=== PATIENT | female | born 1995 | race Caucasian/White ===

== ENCOUNTER → 2023-09-26 | Outpatient (CLI) | payer BC, SELFPAY ==
[2023-09-26 16:32] LABS: Absolute Lymphocyte Count 3.01 X10^3/uL (0.83-4.51); Basophil# 0.08 X10^3/uL; Basophil% 0.8 % (0-1); Eosinophil# 0.23 X10^3/uL; Eosinophils% 2.3 % (0-5); Hematocrit 38.2 % (37-47); Hemoglobin 12.9 g/dL (12.0-15.0); Lymphocyte # 3.01 X10^3/ul (0.83-4.51); Lymphocyte % 30.4 % (19-41); Mean Corp Hgb Conc 33.8 g/dL (32-36); Mean Corpuscular Hgb 30.1 pg (27.0-32.0); Mean Platelet Vol. 11.4 fl (6.2-12.0); Monocyte% 6.1 % (0-10); NRBC Flagged by Analyzer 0 % (0-5); Neutrophil # 5.96 X10^3/uL (2.7-7.7); Neutrophil % 60.2 % (47-70); Platelet Count 267 K/mm3 (150-450); RBC Distribution Width SD 39.5 fl (35.1-43.9); Red Blood Count 4.29 M/mm3 (4.2-5.4); White Blood Count 9.9 K/mm3 (4.4-11.0)
[2023-09-26 16:50] LABS: ALB/GLOB Ratio 0.9 RATIO (0.9-2.4); AST(SGOT) 15 U/L (15-37); Alanine Aminotransfer ALT/SGPT 19 U/L (13-56); Albumin, Serum 3.6 g/dL (3.2-5.0); Alkaline Phosphatase 35 U/L (45-117); Anion Gap 8 (5-15); BUN 16 mg/dL (7-18); BUN/Creat Ratio 17.3 RATIO (10-20); Calcium,Total 9.7 mg/dL (8.5-10.1); Chloride 107 mmol/L (98-107); Creatinine, Serum 0.92 mg/dL (0.55-1.02); D-Dimer Quantitative (DVT/PE) 0.46 FEU/ug/m (0.27-0.49); EST Glomerular Filtration Rate 77 mL/min (>60); Est Glom Filt Rate - Afr Amer 93 mL/min (>60); Globulin 3.9 g/dL (2.2-4.2); Glucose 90 mg/dL (74-106); Potassium 4.1 mmol/L (3.5-5.1); Protein, Total 7.5 g/dL (6.4-8.2); Sodium Level 139 mmol/L (136-145)
[2023-09-26 16:51] LABS: Vitamin D,25 Hydroxy 45.5 ng/mL
== END | disposition home or self-care (01) ==
LOC: BIMLAB 14:38
PROVIDERS: PCP Internal Medicine; Referring Provider Internal Medicine; Visit Provider Internal Medicine
DX: R07.89 Other chest pain (principal)
CPT/HCPCS: 36415; 80053; 82306; 85025; 85379

== ENCOUNTER → 2024-01-01 | Outpatient (CLI) | payer BC, SELFPAY ==
[2024-01-03 06:09] LABS: Anti-Centromere B Ab <0.2 AI (0.0-0.9); Anti-Chromatin <0.2 AI (0.0-0.9); Anti-Jo <0.2 AI (0.0-0.9); Anti-Nuclear Antibody Test Negative (.); Anti-Scleroderma-70 AB <0.2 AI (0.0-0.9); Anti-dsDNA Ab <1 IU/mL (0-9); RNP Ab <0.2 AI (0.0-0.9); SJOGREN'S Anti-SS-A test < 0.2 AI (0.0-0.9); SJOGREN'S Anti-SS-B test < 0.2 AI (0.0-0.9); Smith Ab <0.2 AI (0.0-0.9)
== END | disposition home or self-care (01) ==
LOC: BIMLAB 08:57
PROVIDERS: PCP Internal Medicine; Referring Provider Internal Medicine; Visit Provider Internal Medicine
DX: R07.89 Other chest pain (principal)
CPT/HCPCS: 36415; 86038; 86225; 86235

== ENCOUNTER → 2024-01-07 | Outpatient (CLI) | payer BC, SELFPAY ==
--- NOTE | 2024-01-07 12:00 | RAD_ITS ---
STUDY: X-RAY CHEST REASON FOR EXAM: Female, 28 years old. chest tightness TECHNIQUE: PA and lateral views of the chest. COMPARISON: None. FINDINGS: The lungs are clear and expanded. There is no demonstrated pleural abnormality. Normal size heart. Normal mediastinum and peggy. Normal visualized pulmonary arteries. Normal visualized aortic arch and descending thoracic aorta. Normal visualized thoracic spine. Normal visualized ribs, clavicles, and shoulders. There is no demonstrated abnormality of the visualized soft tissue structures of the upper abdomen. RAD/Chest PA and Lateral IMPRESSION: Normal x-ray examination of the chest. Electronically Signed: Martin Connolly MD at 17:31 EDT ,
== END | disposition home or self-care (01) ==
PROVIDERS: PCP Internal Medicine; Referring Provider Internal Medicine; Visit Provider Internal Medicine
DX: R07.89 Other chest pain (principal)
CPT/HCPCS: 71046

== ENCOUNTER → 2024-10-31 | Outpatient (CLI) | payer BC, SELFPAY ==
[2024-10-31 13:45] LABS: Absolute Lymphocyte Count 2.18 X10^3/uL (0.83-4.51); Absolute Neutrophil Count 2.9 X10^3/uL (2.0-7.7); Basophil# 0.06 X10^3/uL; Basophil% 1.1 % (0-1); Eosinophil# 0.28 X10^3/uL; Eosinophils% 4.9 % (0-5); Hemoglobin 12.9 g/dL (12.0-15.0); Lymphocyte # 2.18 X10^3/ul (0.83-4.51); Lymphocyte % 38.3 % (19-41); Mean Corp Hgb Conc 33.9 g/dL (32-36); Mean Corpuscular Volume 88.4 fL (81-99); Mean Platelet Vol. 11.9 fl (6.2-12.0); Monocyte# 0.28 X10^3/uL; Monocyte% 4.9 % (0-10); NRBC Flagged by Analyzer 0 % (0-5); Neutrophil # 2.88 X10^3/uL (2.7-7.7); Neutrophil % 50.6 % (47-70); Platelet Count 270 K/mm3 (150-450); RBC Distribution Width CV 12.3 % (11.6-14.6); RBC Distribution Width SD 39.9 fl (35.1-43.9); White Blood Count 5.7 K/mm3 (4.4-11.0)
[2024-10-31 14:19] LABS: ALB/GLOB Ratio 1.2 RATIO (0.9-2.4); AST(SGOT) 17 U/L (<=31); Alanine Aminotransfer ALT/SGPT 9 U/L (<=34); Albumin, Serum 4.1 g/dL (3.5-5.0); Alkaline Phosphatase 44 U/L (35-104); Anion Gap 12 (5-15); BUN 14 mg/dL (4-19); BUN/Creat Ratio 18.3 RATIO (10-20); Calcium,Total 9.1 mg/dL (7.6-11.0); Carbon Dioxide 19.3 mmol/L (21.0-32.0); Chloride 106 mmol/L (98-108); Cholesterol 154 mg/dL (<=200); Creatinine, Serum 0.79 mg/dL (0.70-1.20); EST Glomerular Filtration Rate 105 (>60); Globulin 3.4 g/dL (2.2-4.2); Glucose 87 mg/dL (70-99); High Density Lipoprotein 65 mg/dL; Low Density Lipoprotein Calc. 69 mg/dL; Potassium 4.2 mmol/L (3.3-5.1); Protein, Total 7.5 g/dL (5.9-8.4); Sodium Level 138 mmol/L (133-145); Total Bilirubin 0.42 mg/dL (0.00-1.30); Triglycerides 101 mg/dL; Very Low Density Lipoprotein 20 mg/dL (5-40); Vitamin B12 491 pg/mL (180-914); cholesterol:hdl ratio screen 2.36
[2024-11-04 09:08] LABS: Endomysial Antibody IgA Negative (Negative); H. PYLORI STOOL AG Negative (Negative); Immunoglobulin A 203 mg/dL (87-352); t-Transglutaminase IgA <2 U/mL (0-3)
== END | disposition home or self-care (01) ==
LOC: BIMLAB 10:22
PROVIDERS: PCP Internal Medicine; Referring Provider Internal Medicine; Visit Provider Internal Medicine
DX: K21.9 Gastro-esophageal reflux disease without esophagitis (principal); R19.5 Other fecal abnormalities; T78.40XA Allergy, unspecified, initial encounter; R20.0 Anesthesia of skin; R20.2 Paresthesia of skin; F41.9 Anxiety disorder, unspecified; F32.A Depression, unspecified; Z13.6 Encounter for screening for cardiovascular disorders
CPT/HCPCS: 36415; 80053; 80061; 82274; 82607; 82784; 82785; 83516; 84443; 85025; 86003; 86005; 86255; 87338

== ENCOUNTER 2025-03-26 19:18 | Emergency (ER) | payer OTHER, SELFPAY ==
[2025-03-26 19:19] VITALS: BP 132/85; PULSE 87; RESP 18; TEMP 36.7; O2SAT 98
--- NOTE | 2025-03-26 19:27 | RAD_ITS ---
PROCEDURE: ANKLE MIN 3 VIEWS 03/26/2025 REASON FOR EXAM: PAIN. Twisted foot getting into car. Majority of pain on lateral side. TECHNIQUE: Procedure Code: RADKATHLEEN Modality: DX Procedure: ANKLE MIN 3 VIEWS Laterality: Left COMPARISON: None. FINDINGS: BONES: No acute fracture or focal osseous lesion. JOINTS: No dislocation. The joint spaces are normal. SOFT TISSUES: No significant abnormality seen. RAD/Ankle min 3 Views IMPRESSION: NO ACUTE FRACTURE OR DISLOCATION. Reading Location: [id number]
--- NOTE | 2025-03-26 20:04 | EDS_ITS ---
HPI History of Present Illness HPI Narrative: Patient presents with left ankle injury that occurred today. Patient states she stepped on the side of a sidewalk and inverted her ankle. Patient states this caused her to fall. Patient denies any head injury or loss of consciousness. Patient denies any paresthesias or weakness. Patient describes her pain as dull and aching. Patient states it is sharp with any weightbearing. Patient denies any other injuries. Chief Complaint: Lower Extremity Injury Informant: patient Occured/Mechanism Mechanism/Context: Yes fall Comment: Inversion of left ankle Onset/Context/Timing Onset: Today Context: Sudden Onset Timing: Continuous Quality of Pain: Sharp (With weightbearing) and Dull Location: Left ankle Worsened by: Weightbearing Relieved by: Nothing Associated Symptoms Associated Symptoms: Negative for Parasthesia, Weakness or Loss of Funtion [facility] Medical History Anxiety Thoracic outlet syndrome Chronic headaches no medical history Home Medications ?Medication ?Instructions ?Recorded ?Last Taken ?Type multivitamin 1 tab PO DAILY 09/26/23 Unkn own History omega-3 fatty acids-fish oil 360 1 cap PO DAILY Unknown History mg-1,200 mg capsule (Fish Oil) drospirenone 3 mg-ethinyl 1 tab PO QDAY 05/06/24 Unkno wn History estradiol 0.02 mg tablet ascorbic acid (vitamin C) 250 mg 250 mg PO Immune Defe nse 10/30/24 Unknown History tablet (Vitamin C) magnesium oxide-magnesium amino cap PO 10/30/24 Unknow n History acid chelate 300 mg capsule (Magnesium (oxide/AA chelate)) sertraline 50 mg tablet 50 mg PO DAILY #90 TABLETS 0 12/11/24 Unknown Rx Allergy/AdvReac Type Severity Reaction Status Date / Time No Known Allergies Allergy Verified 03/26/25 19:22 Family History Grandfather Myocardial infarction Father Heart disease Hypertension Alcoholism Afib Grandmother Cancer lung CA, paternal Grandfather Cancer throat Mother Anxiety and depression Thyroid disorder Brother Anxiety and depression Sister Anxiety and depression Asthma Surgical History H/O wisdom tooth extraction Social History adopted: No household members: none number of children: 0 current occupational status: employed 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 pets and animals: Yes (2,1) pets and animals: cat(s) and dog(s) sexually active: No Smoking Status: Never smoker Electronic Cigarette Use: not used alcohol intake: current alcohol intake frequency: holidays/special occasions only substance use type: does not use caffeine: No frequency: 1-2 times per week do you feel safe at home: Yes ROS ROS ED Constitutional Constitutional ED: Denies chills or fever(s) Eyes Eyes: Denies blurry vision or change in vision ENT ENT ED: Denies rhinorrhea or sore throat Cardiovascular Cardiovascular: Denies chest pain or palpitations Respiratory/Chest Respiratory/Chest: Denies cough or dyspnea Gastrointestinal Gastrointestinal: Denies nausea or vomiting Genitourinary Genitourinary ED: Denies dysuria or hematuria Musculoskeletal Musculoskeletal: Denies back pain or neck pain Integumentary Denies abscess or rash Neurologic Neurologic: Denies headache(s) or weakness Allergic/Immunologic Allergic/Immunologic ED: Denies mouth swelling or urticaria EXAM Physical Exam Const Vital Signs: 03/26/25 19:19 03/26/25 20:26 Temperature 98.0 F 98 F Temperature Source Temporal Pulse Rate 87 80 Respiratory Rate 18 16 Blood Pressure 132/85 H 120/75 Blood Pressure Mean 100 90 Pulse Ox 98 99 Oxygen Delivery Method Room Air Positive well nourished and well developed Constitutional Narrative: BMI is 30.0. General Appearance ED: well developed and NAD HEENT Reports moist mucous membranes normocephalic and atraumatic Neck full ROM and supple Extremity Extremity Narrative: There is tenderness over the lateral aspect of the left ankle. There is mild edema. There is no ecchymosis. There is no deformity noted. Range of motion was limited in all motions of the left ankle secondary to pain. Sensation was intact to light touch in all digits. Capillary refill is less than 2 seconds in all digits. Pedal pulses are equal bilaterally. There is no tenderness over the fifth metatarsal. There is no tenderness over the proximal fibula. Neuro oriented x3, CN's II-XII intact bilaterally, moves all extremities and no sensory deficits noted Sensorium / Orientation: alert Motor Exam: strength 5/5 throughout Psych mental status grossly normal MDM MDM MDM Narrative Medical decision making narrative: Differential diagnosis includes fracture, sprain, and contusion. X-rays of the left ankle will be obtained to assess for fracture. Radiography Diagnostic Testing: Clinical Impression(s) from Imaging Studies Ankle X-Ray 03/26/25 19:27 IMPRESSION: NO ACUTE FRACTURE OR DISLOCATION. Reading Location: [facility] X-rays of the left ankle were obtained. There are 3 views. On my independent interpretation, there is no acute fracture. There is no dislocation. There is no soft tissue swelling. Radiologist also interpreted the x-rays and agrees. Treatment and Re-Evaluation Narrative: Patient was advised of her findings. Patient was instructed to ice and elevate the left ankle. Patient was given a walking boot. Patient declined crutches. Patient was instructed to take Tylenol or ibuprofen as needed for pain. Patient was instructed to follow-up with her primary care physician in 5 to 7 days. Patient understood and was agreeable with the plan. All questions were answered. Discharge Plan Triage Chief Complaint: Lower Extremity Injury ED Provider: Hansel Ch Dx/Rx/DC Orders Clinical Impression: Left ankle sprain, Fall Instructions: ED Ankle Sprain (Adult) Prescriptions: No Action multivitamin Tablet 1 tab PO DAILY omega-3 fatty acids-fish oil [Fish Oil] 360-1,200 mg capsule 1 cap PO DAILY drospirenone-ethinyl estradiol 3-0.02 mg tablet 1 tab PO QDAY ascorbic acid (vitamin C) [Vitamin C] 250 mg tablet 250 mg PO Patient Comments: With Elderberry Magnesium (oxide/AA chelate) 300 mg capsule PO Patient Comments: 325mg with 25mg ashwagandha sertraline 50 mg tablet 50 mg PO DAILY Qty: 90 1RF Primary Care Provider: Zo Fernandez Referrals: Zo Fernandez MD [Primary Care Provider, Internal Medicine] - 5-7 Days Print Language: Greenlandic Disposition Disposition: Home, Self Care Discharge Date/Time: 03/26/25 20:27
[2025-03-26 20:26] VITALS: BP 120/75; PULSE 80; RESP 16; TEMP 36.6; O2SAT 99
== END 2025-03-26 20:27 | disposition home or self-care (01) ==
LOC: ED 20:11
PROVIDERS: Emergency Provider Emergency Medicine; PCP Internal Medicine; Visit Provider Emergency Medicine
DX: S93.402A Sprain of unspecified ligament of left ankle, initial encounter (principal); W10.1XXA Fall (on)(from) sidewalk curb, initial encounter
CPT/HCPCS: 73610; 99283